=== PATIENT | male | born 1955 | race Caucasian/White ===

== ENCOUNTER → 2018-01-05 | Outpatient (CLI) | payer OTHER ==
[~2018-01-05] MED LIST: FISH OIL1 CAP PO; VIT C
[2018-01-05 09:06] LABS: LDL CHOLESTEROL 93 mg/dl
== END ==
LOC: LAB 07:09
PROVIDERS: ATTEND Family Medicine
DX: Z13.9 Encounter for screening, unspecified (principal)
CPT/HCPCS: 36415; 82040; 82247; 82310; 82374; 82435; 82465; 82565; 82947; 83718; 84075; 84132; 84153; 84155; 84295; 84443; 84450; 84460; 84478; 84520; 85027

== ENCOUNTER → 2018-01-15 | Outpatient (CLI) | payer OTHER | LOC: LAB 07:19 | PROVIDERS: ATTEND Family Medicine | DX: R73.01 Impaired fasting glucose (principal) | CPT/HCPCS: 36415; 83036 ==

== ENCOUNTER → 2018-07-20 | Outpatient (CLI) | payer OTHER ==
--- NOTE | 2018-07-20 10:25 | EKG ---
FAC[facility] PATIENT NAME: SERGIO FLEMING : [id number] MR: [id number] V: [id number] EXAM DATE: ORDERING PHYSICIAN: CHRISTINA NOGUERA TECHNOLOGIST: BOBBI Malcolm Reason : CP Blood Pressure : / mmHG Vent. Rate : 080 BPM Atrial Rate : 080 BPM P-R Int : 156 ms QRS Dur : 090 ms QT Int : 356 ms P-R-T Axes : 074 079 038 degrees QTc Int : 410 ms Sinus rhythm Probable left atrial enlargement No acute appearing findings No previous ECGs available Confirmed by BECKY RIDLEY ([id number]) on 07/20/2018 4:52:23 PM Referred By: CHUCKIE Confirmed By:BECKY RIDLEY
== END ==
LOC: RESP 09:10
PROVIDERS: ATTEND Family Medicine
DX: R07.9 Chest pain, unspecified (principal)
CPT/HCPCS: 93005

== ENCOUNTER → 2018-08-07 | Outpatient (CLI) | payer OTHER | LOC: US 01:39 | PROVIDERS: ATTEND Family Medicine | DX: R07.89 Other chest pain (principal); M79.601 Pain in right arm; M79.602 Pain in left arm | CPT/HCPCS: 93017; 93350 ==